=== PATIENT | male | born 1985 | race Caucasian/White ===

== ENCOUNTER 2024-05-13 09:37 | Day surgery (SDC) | payer OTHER ==
[~2024-05-13] VITALS: Ht 175.3 cm; Wt 93.0 kg
[2024-05-13] MEDS ORDERED: KETOROLAC 30 MG/ML VIAL ONE (13:08)
[2024-05-13] MEDS: KETOROLAC 30 MG/ML VIAL IVP ONE (13:18)
[2024-05-13] MEDS: LIDOCAINE 2% 100 MG/5 ML UJET TP ONE (13:38)
== END 2024-05-13 14:45 | disposition home or self-care (01) ==
LOC: MDS 09:37 → MMU 11:47 → MDS 14:45
PROVIDERS: ATTEND Internal Medicine Gastroenterology
DX: K62.5 Hemorrhage of anus and rectum (principal); K64.4 Residual hemorrhoidal skin tags; K57.30 Diverticulosis of large intestine without perforation or abscess without bleeding; F17.210 Nicotine dependence, cigarettes, uncomplicated; Z80.0 Family history of malignant neoplasm of digestive organs
CPT/HCPCS: 45378; J1885